=== PATIENT | female | born 1950 | race Caucasian/White ===

== ENCOUNTER → 2017-03-30 | Outpatient (CLI) | payer MEDICARE, BC ==
[~2017-03-30] MED LIST: ALPR-240 PO; CIPR-280 PO; DIGO125T70 PO; ERGO400C PO; FISH1CAP29 PO; FLUT16SP12 NS; HYDR25TA85 PO; METF500T4 PO; METO25TA40 PO; PHEN-779 PO; VITA1TAB21 PO
== END ==
LOC: LABN 14:49
PROVIDERS: ATTEND Nurse Practitioner
DX: R19.7 Diarrhea, unspecified (principal)
CPT/HCPCS: 87507